=== PATIENT | male | born 1975 | race Asian ===

== ENCOUNTER 2017-04-28 22:31 | Emergency (ER) | payer BC ==
[~2017-04-28] VITALS: Ht 162.6 cm; Wt 68.5 kg
[2017-04-28 22:38] VITALS: Ht 162.6 cm; Wt 68.5 kg
[2017-04-29 01:16] VITALS: BP 139/75
== END 2017-04-29 00:40 | disposition home or self-care (01) ==
LOC: ED 22:31
DX: B34.9 Viral infection, unspecified (principal); Z88.8 Allergy status to other drugs, medicaments and biological substances
CPT/HCPCS: J1885; Q0162